=== PATIENT | male | born 1975 | race Two or more races ===

== ENCOUNTER 2016-11-06 11:11 | Emergency (ER) | payer MEDICAID ==
[~2016-11-06] VITALS: Ht 157.5 cm; Wt 54.4 kg
[2016-11-06 13:16] LABS: DEFINITIVE VIEW TRANSMISSION; Hematocrit 46.2 % (41.0-53.0); Hemoglobin 15.5 g/dL (13.5-17.5); Mean Corpuscular Hemoglobin 34.7 pg (28.0-32.0); Mean Corpuscular Hgb Conc. 33.5 g/dL (32.0-36.0); Mean Corpuscular Volume 103.6 fL (80.0-100.0); Mean Platelet Volume 9.1 fL (7.4-10.4); Platelet Count (auto) 179 10^3/uL (140-450); Red Cell Distribution Width 13.2 % (11.6-16.0); White Blood Cell 4.9 10^3/uL (4.4-10.8)
[2016-11-06 13:40] LABS: Albumin 4.6 g/dL (3.4-5.0); BUN/Creatinine Ratio 11.8; Bilirubin, Total 2.2 mg/dL (0.2-1.0); Calcium 10.1 mg/dL (8.5-10.1); Magnesium 2.3 mg/dL (1.6-2.6)
[2016-11-06 13:43] LABS: Metamyelocytes % 0; Myelocytes % 0; Promyelocytes % 0; Reactive Lymphocytes 0
[2016-11-06] MEDS ORDERED: DIAZEPAM 5 MG TAB PO ONE (14:15)
[2016-11-06] MEDS ORDERED: SODIUM CHLORIDE 0.9% 1,000 ML IV ONE (14:15)
[2016-11-06] MEDS ORDERED: THIAMINE HCL 100 MG TAB PO ONE (14:15)
[2016-11-06 14:34] LABS: Macrocytosis Slight; Platelet Estimate Adequate
[2016-11-06 14:37] VITALS: BP 185/125
[2016-11-06] MEDS ORDERED: ACETAMINOPHEN 325 MG TAB PO ONE (15:15)
[2016-11-06] MEDS ORDERED: DIAZEPAM 5 MG/ML 2ML SYRG IV ONE (15:15)
[2016-11-06] MEDS ORDERED: LORazepam 2MG/ML-1ML VIAL ONE (15:42)
[2016-11-06] MEDS ORDERED: LORazepam 2MG/ML-1ML VIAL IV ONE (15:45)
== END 2016-11-06 16:01 | disposition home or self-care (01) ==
LOC: ER 11:12
DX: R07.89 Other chest pain (principal); F10.239 Alcohol dependence with withdrawal, unspecified
CPT/HCPCS: 36415; 71020; 80053; 82150; 83690; 83735; 84484; 85007; 85027; 85049; 93005; 96374; 96375; 99285; G0434; J2060; J3360; J7030

== ENCOUNTER 2017-01-22 16:58 | Emergency (ER) | payer MEDICAID ==
[2017-01-23 07:33] VITALS: BP 146/78
== END 2017-01-23 07:52 | disposition home or self-care (01) ==
LOC: EDBD 16:58 → ER 16:58
DX: F41.9 Anxiety disorder, unspecified (principal); F32.9 Major depressive disorder, single episode, unspecified; G43.909 Migraine, unspecified, not intractable, without status migrainosus; M79.1 Myalgia; M54.5 Low back pain; I10 Essential (primary) hypertension